=== PATIENT | female | born 1990 | race Two or more races ===

== ENCOUNTER 2023-05-30 10:03 | Outpatient (CLI) | payer OTHER | END 2023-05-30 23:59 | disposition critical access hospital (66) | LOC: EMS 10:03 | DX: R55 Syncope and collapse (principal); R10.30 Lower abdominal pain, unspecified; R10.10 Upper abdominal pain, unspecified | CPT/HCPCS: A0425; A0429 ==

== ENCOUNTER 2023-05-30 10:26 | Emergency (ER) | payer OTHER ==
[2023-05-30] MEDS: SODIUM CHLORIDE 0.9% 1,000 ML IV STA (10:47)
[2023-05-30 10:55] LABS: BASOPHILS % (AUTO) 0.3 %; EOSINOPHILS # (AUTO) 0.1 10^3/uL (0.0-0.7); EOSINOPHILS % (AUTO) 0.7 %; HCT - HEMATOCRIT 36.8 % (37.0-47.0); HGB - HEMOGLOBIN 12.2 g/dL (12.0-16.0); LYMPHOCYTES # (AUTO) 1.7 10^3/uL (1.5-3.5); LYMPHOCYTES % (AUTO) 16.6 %; MEAN CORPUSCULAR HEMOGLOBIN 28.7 pg (27.0-31.0); MEAN CORPUSCULAR HGB CONC 33.2 g/dL (32.0-36.0); MEAN CORPUSCULAR VOLUME 86.6 fL (81.0-99.0); MEAN PLATELET VOLUME 9.8 fL (7.9-10.8); MONOCYTES # (AUTO) 0.4 10^3/uL (0.0-1.0); MONOCYTES % (AUTO) 4.2 %; NEUTROPHILS # (AUTO) 7.8 10^3/uL (1.5-6.6); NEUTROPHILS % (AUTO) 77.7 %; PLT - PLATELET COUNT 238 10^3/uL (130-450); RED BLOOD COUNT 4.25 10^6/uL (4.20-5.40); RED CELL DISTRIBUTION WIDTH 13.7 % (12.0-15.0)
[2023-05-30 11:08] LABS: ALBUMIN 3.6 g/dL (3.2-5.5); ALBUMIN/GLOBULIN RATIO 1.2 (1.0-2.2); BILIRUBIN,TOTAL 0.2 mg/dL (0.2-1.0); CALCIUM 9.3 mg/dL (8.5-10.3); CREATININE 0.6 mg/dL (0.6-1.3); POTASSIUM 3.7 mmol/L (3.5-4.5); TOTAL PROTEIN 6.6 g/dL (6.4-8.9)
[2023-05-30 11:31] LABS: BILIRUBIN,URINE NEGATIVE (NEGATIVE); GLUCOSE, URINE (UA) NEGATIVE (NEGATIVE); KETONES,URINE (UA) TRACE mg/dL (NEGATIVE); LEUKOCYTE ESTERASE, URINE NEGATIVE (NEGATIVE); NITRITE,URINE NEGATIVE (NEGATIVE); OCCULT BLOOD,URINE NEGATIVE (NEGATIVE); PROTEIN,URINE NEGATIVE (NEGATIVE); UROBILINOGEN,URINE 0.2 (NORMAL) E.U./dL (NORMAL)
--- NOTE | 2023-05-30 11:31 | ED Physician Documentation ---
History of Present Illness - Stated complaint Stated Complaint: SYNCOPE - Chief complaint Chief Complaint: Neuro - History obtained from History obtained from: Patient - Additonal information Additional information: The patient comes to the emergency department chief complaint of lower abdominal pain and syncopal episode today. Patient is 21 weeks and states that she went to bed very late last night and then got up at 1:00 in the morning. She states that she has felt tired and dizzy today but then she began to have lower abdominal cramping. She denies any other symptoms along with that. No diarrhea, dysuria, fluid leakage, vaginal discharge, or vaginal bleeding. She has been feeling the baby move all day. She denies any fevers or chills. She felt a little nauseated earlier but states this is resolved. She also states her lower abdominal pain has resolved. The patient has not been ill with anything else. Patient states that she called her OB nurse today after her sister told her she should get the baby checked out, and that while she was on the phone with the OB nurse, she began to feel lightheaded. She sat down but still ended up having a very brief syncopal episode which she estimates was probably only a secondary to because the nurse was still on the phone when she came to. The patient decided then to come to the ED to get checked out. PD PAST MEDICAL HISTORY - Past Medical History Past Medical History: No - Past Surgical History Past Surgical History: No - Present Medications Home Medications: Ambulatory Orders Medication Instructions Recorded Confirmed Pnv No.95/Ferrous Fum/Folic AC 1 tab PO DAILY 05/30/23 05/30/23 [ Tablet] - Allergies Allergies/Adverse Reactions: Allergies Allergy/AdvReac Type Severity Reaction Status Date / Time No Known Drug Allergies Allergy Verified 05/30/23 10:37 - Social History Does the pt smoke?: No Smoking Status: Never smoker Does the pt have substance abuse?: No PD ED PE NORMAL - Vitals Vital signs reviewed: Yes - General General: Alert and oriented X 3, No acute distress, Well developed/nourished - HEENT HEENT: Atraumatic, PERRL, EOMI, Moist mucous membranes - Neck Neck: Supple, no meningeal sign - Cardiac Cardiac: RRR, No murmur - Respiratory Respiratory: No respiratory distress, Clear bilaterally - Abdomen Abdomen: Soft, Non tender, Other (Gravid abdomen, nontender.) - Derm Derm: Normal color, Warm and dry, No rash - Extremities Extremities: No deformity - Neuro Neuro: Alert and oriented X 3 - Psych Psych: Normal mood, Normal affect Results - Vitals Vitals: Oxygen O2 Source Room air - Labs Labs: Laboratory Tests 05/30/23 05/30/23 05/30/23 10:50 10:50 11:24 WBC 10.0 RBC 4.25 Hgb 12.2 Hct 36.8 L MCV 86.6 MCH 28.7 MCHC 33.2 RDW 13.7 Plt Count 238 MPV 9.8 Neut # (Auto) 7.8 H Lymph # (Auto) 1.7 [place] # (Auto) 0.4 Eos # (Auto) 0.1 Baso # (Auto) 0.0 Absolute Nucleated RBC 0.00 Nucleated RBC % 0.0 Sodium 135 Potassium 3.7 Chloride 102 Carbon Dioxide 26 Anion Gap 7.0 BUN 12 Creatinine 0.6 Estimated GFR (MDRD) 117 Glucose 86 Calcium 9.3 Total Bilirubin 0.2 AST 10 ALT 10 Alkaline Phosphatase 38 L Total Protein 6.6 Albumin 3.6 Globulin 3.0 Albumin/Globulin Ratio 1.2 Lipase 10 L Urine Color YELLOW Urine Clarity CLEAR Urine pH 7.0 Ur Specific [place] 1.020 Urine Protein NEGATIVE Urine Glucose (UA) NEGATIVE Urine Ketones TRACE Urine Occult Blood NEGATIVE Urine Nitrite NEGATIVE Urine Bilirubin NEGATIVE Urine Urobilinogen 0.2 (NORMAL) Ur Leukocyte Esterase NEGATIVE Ur Microscopic Review NOT INDICATED Urine Culture Comments NOT INDICATED PD Medical Decision Making - ED course Complexity details: reviewed results, re-evaluated patient, considered differential, d/w patient ED course: The patient was treated with a liter of IV fluid. She was worked up with labs, urinalysis, and EKG. EKG was unremarkable as were labs. Patient's heart tones were in the 170s. The patient was feeling well on reevaluation and felt she was stable for discharge home. We have discussed the need for close follow- up with OB and the usual indications for return. Departure - Departure Disposition: 01 Home, Self Care Clinical Impression: Second trimester Syncope Qualifiers: Syncope type: unspecified Qualified Code(s): R55 - Syncope and collapse Condition: Stable Instructions: Preg 2nd Trimester Coping, ED Fainting Unkn Cause Comments: Your labs look great and your heart tones are appropriate. Your urinalysis is negative. You have been given a liter of fluid here in the emergency department and your vital signs are stable. Most likely, you fainted because of combination of the and the tiredness from not getting much sleep last night. It is important that you continue to follow-up with your OB specialist And get plenty of water to drink. You also need to make sure you are getting to bed on time and trying to get a full night sleep as much as possible. Forms: PCP List Discharge Date/Time: 05/30/23 13:04
[2023-05-30 11:35] LABS: CLARITY,URINE CLEAR (CLEAR)
[2023-05-30 12:46] VITALS: BP 104/62; O2SAT 99
== END 2023-05-30 13:04 | disposition home or self-care (01) ==
LOC: ED 10:26
DX: O26.892 Other specified pregnancy related conditions, second trimester (principal); R55 Syncope and collapse; Z3A.21 21 weeks gestation of pregnancy
CPT/HCPCS: 36415; 80053; 81001; 81003; 83690; 85025; 87086; 93005; 99283

== ENCOUNTER 2023-09-26 07:28 | Outpatient (CLI) | payer OTHER ==
[2023-09-26 07:58] VITALS: BP 123/73
[2023-09-26 09:02] VITALS: O2SAT 98
--- NOTE | 2023-09-27 04:28 | PROCEDURE REPORT ---
- HPI Current EDU 10/05/23 Gestation 38 Weeks and 5 Days 3 Para 1 Vital Signs Temperature 97.7 F 09/26/23 07:44 Heart Rate 78 09/26/23 07:44 Respiratory Rate 16 09/26/23 07:44 Blood Pressure 123/73 09/26/23 07:44 Temperature 97.7 F 09/26/23 10:35 Heart Rate 78 09/26/23 10:35 Respiratory Rate 16 09/26/23 10:35 Blood Pressure 123/73 09/26/23 10:35 O2 Saturation 98 09/26/23 07:55 If not protocol: Oxygen Flow, liters/minute - NST Procedure NST Procedure Start Date 09/26/23 Start Time 09:30 Stop Time 10:10 Vibroacoustic Stimulation Used No Patient States Movement Yes - Results and Plan Findings/Impression: Marisol is a 32 yo at 38w5d who presented today for labor evaluation. Per RN exam, SVE 4.5cm which was a change from 1cm. However, contractions spaced out significantly and less painful. FHTs Cat 1. I saw patient at bedside prior to discharge. Offered admission for labor management, however, Mariosl requested discharge home with return precautions as she does not have childcare until this evening and does not desire epidural or labor augmentation. Labor precautions reviewed. Latoya Spain MD
== END 2023-09-26 10:35 | disposition home or self-care (01) ==
LOC: WFO 07:28 → FBP 07:30 → WFO 10:35
PROVIDERS: ATTEND Obstetrics & Gynecology
DX: O47.1 False labor at or after 37 completed weeks of gestation (principal); Z3A.38 38 weeks gestation of pregnancy
CPT/HCPCS: 59025; 99214